=== PATIENT | male | born 1960 | race Caucasian/White ===

== ENCOUNTER 2017-08-10 15:19 | Emergency (ER) | payer SELFPAY ==
--- NOTE | 2017-08-10 16:05 | PDOC ---
Rapid Medical Evaluation Chief Complaint: Injury Time Seen by Provider: 08/10/17 16:03 Medical Evaluation: Allergies Allergy/AdvReac Type Severity Reaction Status Date / Time No Known Allergies Allergy Verified 08/10/17 16:02 08/10/17 16:03 I have performed a brief in-person evaluation of this patient. The patient presents with a chief complaint of pain to left ankle. States s/p twisted left ankle on snow on , now with pain in left ankle radiating up to left knee. Denies numbness or tingling in toes Pertinent physical exam findings: nad unlabored breathing left ankle + swelling, tenderness on medial malleolus I have ordered the following: left ankle xray The patient will proceed to the Ed for further evaluation.
[2017-08-10 16:07] VITALS: BP 139/98; PULSE 72; TEMP 98.5; BMI 32.8
--- NOTE | 2017-08-10 18:00 | PDOC ---
History of Present Illness - General Chief Complaint: Injury Stated Complaint: FELL ON ICE Time Seen by Provider: 08/10/17 16:03 History Source: Patient Exam Limitations: No Limitations - History of Present Illness Initial Comments: CHIEF COMPLAINT: 57 y/o afebrile male with no significant PMH c/o left ankle and knee pain s/p slip and fall 4 days ago. HISTORY OF PRESENT ILLNESS: The patient states at first his left ankle was hurting. That has improved but now his left knee is hurting and he states feels unstable. He denies f/c, head trauma, LOC, numbness/tingling in LEs, calf pain. He took naproxen today and states it helped. He is using old crutches he had to get around. Vital signs on arrival are within normal limits. REVIEW OF SYSTEMS: GENERAL/CONSTITUTIONAL: No fever/chills. No weakness. No weight change. MUSCULOSKELETAL: +left ankle and left knee pain. No neck or back pain. SKIN: No rash or easy bruising. NEUROLOGIC: No headache, vertigo, loss of consciousness, or loss of sensation. PHYSICAL EXAM: VITAL_SIGNS: within normal limits GENERAL_APPEARANCE: alert, cooperative, mild obvious discomfort. MENTAL_STATUS: speech clear, oriented X 3, responds appropriately to questions. NEURO: motor intact and sensory intact in injured extremity. EXTREMITIES: 2+ dorsalis pedis pulse in left foot. Full flexion, extension, eversion and inversion of left ankle. MIld swelling and TTP of lateral and medial malleolus of left ankle. Left knee with moderate swelling. Lateral joint line TTP of left knee. Full passive ROM. Negative Lachmann's test. No edema, erythema or TTP of left calf. SKIN: warm, dry, good color. Past History - Past Medical History Allergies/Adverse Reactions: Allergies Allergy/AdvReac Type Severity Reaction Status Date / Time No Known Allergies Allergy Verified 08/10/17 16:02 Home Medications: Ambulatory Orders Naproxen 500 mg PO BID #20 tablet 08/10/17 Naproxen [Naprosyn -] 500 mg PO BID 08/10/17 CVA: No COPD: No DVT: No - Immunization History Immunization Up to Date: Yes - Suicide/Smoking/Psychosocial Hx Smoking History: Never smoked Have you smoked in the past 12 months: No Information on smoking cessation initiated: No Hx Alcohol Use: Yes (daily) Drug/Substance Use Hx: No Substance Use Type: Alcohol *Physical Exam - Vital Signs Last Vital Signs Temp Pulse Resp BP Pulse Ox 98.5 F 72 16 139/98 100 08/10/17 16:02 08/10/17 16:02 08/10/17 16:02 08/10/17 16:02 08/10/17 16:02 ED Treatment Course - RADIOLOGY Radiology Studies Ordered: Category Date Time Status KNEE 2 POS-LEFT [RAD] Stat Radiology 08/10/17 17:57 Ordered Medical Decision Making - Medical Decision Making A/P: 57 y/o afebrile male with left ankle and foot pain s/p slip and fall 4 days ago. Plan is as follows: 1. xray left knee 2. xray left foot/ankle Xrays (wet read): No gross bony abnormalities or fractures. Gave patient results. Will send rx for naproxen. Suggested continued use of crutches, RICE instructions and f/u with Dr. Hayes on or wednesday. Pt instructed to return to the ER with any worsening or concerning symptoms. The patient verbalizes understanding of all instructions, has no further questions and is awaiting discharge. *DC/Admit/Observation/Transfer Diagnosis at time of Disposition: Left knee sprain Qualifiers: Encounter type: initial encounter Involved ligament of knee: unspecified ligament Qualified Code(s): S83.92XA - Sprain of unspecified site of left knee, initial encounter Left ankle sprain Qualifiers: Encounter type: initial encounter Involved ligament of ankle: unspecified ligament Qualified Code(s): S93.402A - Sprain of unspecified ligament of left ankle, initial encounter - Discharge Dispostion Disposition: HOME Condition at time of disposition: Stable - Referrals Referrals: Viraj Hayes MD [Staff Physician] - - Patient Instructions Printed Discharge Instructions: DI for Ankle Sprain, DI for Knee Sprain, How To Perform RICE (Rest, Ice, Compress, Elevate) Additional Instructions: Discharge Instructions: -Your xrays did not show any broken bones -Use PARUL bandages as needed for support -Continue to use crutches for support -Follow RICE instructions -Take Naproxen for pain with food if needed -Call Dr. Hayes's office tomorrow and schedule an appointment for or wednesday -Return to the ER with any worsening or concerning symptoms Instrucciones de descarga: -Tus radiografas no mostraron ningn hueso roto -Utilice vendas PARUL segn sea necesario para el soporte -Siga usando muletas para soporte -Siga las instrucciones de RICE -Burnet Naproxen para el dolor con comida si es necesario Llame a la oficina del Dr. Freddy walton y programe denisse penelope para el jueves o el viernes -Volver a la bhavana de urgencias con cualquier empeoramiento o sntomas Print Language: SYRIAC - Post Discharge Activity Forms/Work/School Notes: Back to Work
== END 2017-08-10 19:02 | disposition home or self-care (01) ==
LOC: JERFT 15:19
DX: S83.92XA Sprain of unspecified site of left knee, initial encounter (principal); S93.402A Sprain of unspecified ligament of left ankle, initial encounter; W00.0XXA Fall on same level due to ice and snow, initial encounter; Y93.89 Activity, other specified; Y92.9 Unspecified place or not applicable
CPT/HCPCS: 73560-TC-LT; 73610-TC-LT; 73630-TC-LT; 99281-25

== ENCOUNTER 2018-12-24 12:54 | Emergency (ER) | payer SELFPAY | END 2018-12-24 13:35 | disposition left against medical advice (07) | LOC: JER 12:54 ==